=== PATIENT | male | born 1985 | race Two or more races ===

== ENCOUNTER 2020-11-05 05:00 | Emergency (ER) | payer SELFPAY ==
[~2020-11-05] VITALS: Ht 177.8 cm; Wt 61.2 kg
[2020-11-05 07:27] VITALS: BP 131/85
[2020-11-05] MEDS ORDERED: HYDROcodone-ACET 5/325MG TAB PO ONE (08:00)
== END 2020-11-05 08:31 | disposition home or self-care (01) ==
LOC: ER 05:00
DX: S52.501A Unspecified fracture of the lower end of right radius, initial encounter for closed fracture (principal); W19.XXXA Unspecified fall, initial encounter; Y93.89 Activity, other specified; Y92.89 Other specified places as the place of occurrence of the external cause; Y99.8 Other external cause status
CPT/HCPCS: 29125; 73110